=== PATIENT | female | born 1985 | race Caucasian/White ===

== ENCOUNTER 2019-09-15 13:16 | Inpatient (IN) ==
[~2019-09-15 13:16] MED LIST: *HR* FentaNYL (PF) 100 MCG/2 ML VIAL IVP PRN; Famotidine 20 MG/2 ML VIAL IVP PRN; Metoclopramide 10 MG/2 ML VIAL IVP PRN; Naloxone 0.4 MG/ML INJ IVP PRN
[2019-09-15] MEDS ORDERED: Oxytocin 20 units/ LR 1000 mL 20 UNIT/1,000 ML BAG IVC ONE (14:03)
[2019-09-15] MEDS ORDERED: Ringers Solution, Lactated 1,000 ML ONE ×2 (14:03→14:54)
[2019-09-15] MEDS ORDERED: Oxytocin 20 units/ LR 1000 mL 20 UNIT/1,000 ML BAG IVC SCH (14:30)
[2019-09-15] MEDS ORDERED: Epidural Premix (fent/bupiv) 110 ML EP SCH (15:00)
[2019-09-15] MEDS ORDERED: EPHEDrine 50 MG/ML VIAL IVP PRN (15:00)
[2019-09-15] MEDS ORDERED: Ropivacaine/PF 0.2% 20 ML VIAL ONE (15:03)
[2019-09-15] MEDS ORDERED: *HR* FentaNYL (PF) 100 MCG/2 ML VIAL ONE (15:03)
[2019-09-15 18:08] LABS: Basophils % 0.3 %; Eosinophils # 0.3 K/mcL (0.0-0.6); Eosinophils % 2.2 %; Hematocrit 41.2 % (35.3-44.9); Hemoglobin 13.9 g/dL (11.5-15.4); Immature Granulocytes % 0.3 % (0-4); Lymphocytes # 2.1 K/mcL (0.6-4.6); Lymphocytes % 18.2 %; Mean Corpuscular HGB Conc 33.7 g/dL (31.6-35.5); Mean Corpuscular Hemoglobin 32.9 pg (28.0-33.3); Mean Corpuscular Volume 97.4 fL (83.0-100.0); Mean Platelet Volume 10.5 fL (9.4-12.4); Monocytes # 0.8 K/mcL (0.0-1.3); Monocytes % 6.9 %; Neutrophils # 8.3 K/mcL (1.6-8.9); Platelet Count 238 K/mcL (140-400); Red Blood Count 4.23 M/mcL (3.82-4.97); Red Cell Distribution Width 13.2 % (11.5-14.5); Segmented Neutrophils % 72.1 %; White Blood Count 11.5 K/mcL (4.3-11.1)
[2019-09-16] MEDS: Ringers Solution, Lactated 1,000 ML IVC SCH (00:30)
[2019-09-16] MEDS ORDERED: Benzocaine/Menthol 56 GM AEROSOL SPRAY TP PRN (06:33)
[2019-09-16] MEDS ORDERED: Lanolin 7 G OINT...G. TP PRN (06:33)
[2019-09-16] MEDS ORDERED: Acetaminophen 325 MG TABLET PO PRN (06:33)
[2019-09-16] MEDS: Ibuprofen 600 MG TABLET PO PRN ×3 (07:53→21:36)
[2019-09-16] MEDS: Prenatal Vit/FA 1 EACH TABLET PO SCH (07:53)
[2019-09-17] MEDS: Oxytocin 20 units/ LR 1000 mL 20 UNIT/1,000 ML BAG IVC SCH ×2 (03:43→03:44)
[2019-09-17] MEDS: Ringers Solution, Lactated 1,000 ML IVC SCH (03:44)
[2019-09-17] MEDS: Ibuprofen 600 MG TABLET PO PRN (05:55)
[2019-09-17] MEDS: Prenatal Vit/FA 1 EACH TABLET PO SCH (08:33)
[2019-09-17 09:36] VITALS: BP 103/68
[2019-09-17 11:32] LABS: Basophils % 0.3 %; Eosinophils # 0.3 K/mcL (0.0-0.6); Eosinophils % 2.4 %; Hematocrit 35.2 % (35.3-44.9); Immature Granulocytes % 0.5 % (0-4); Lymphocytes # 2.1 K/mcL (0.6-4.6); Lymphocytes % 14.7 %; Mean Corpuscular HGB Conc 34.1 g/dL (31.6-35.5); Mean Corpuscular Hemoglobin 33.1 pg (28.0-33.3); Mean Corpuscular Volume 97.2 fL (83.0-100.0); Mean Platelet Volume 9.9 fL (9.4-12.4); Monocytes # 0.8 K/mcL (0.0-1.3); Monocytes % 5.9 %; Neutrophils # 10.7 K/mcL (1.6-8.9); Platelet Count 209 K/mcL (140-400); Red Blood Count 3.62 M/mcL (3.82-4.97); Red Cell Distribution Width 13.4 % (11.5-14.5); Segmented Neutrophils % 76.2 %
== END 2019-09-17 17:08 | disposition home or self-care (01) | DRG 560 ==
LOC: 1NENULAB → 1NENUOBS 09-16 06:33
PROVIDERS: ADMIT Advanced Practice Midwife; ATTEND Advanced Practice Midwife